=== PATIENT | female | born 1960 | race Caucasian/White ===

== ENCOUNTER 2020-03-18 12:44 | Outpatient (CLI) | payer BC, SELFPAY ==
--- NOTE | ~2020-03-18 | XR_ITS ---
XR lumbar spine 2-3V 03/18/2020 13:25 Indication: Low back pain Procedure: 3 views lumbar spine Comparison: No prior studies for comparison. Findings: Vertebral body heights are maintained. Normal lumbar lordosis. There are are mild facet deg enerative changes of the mid and lower lumbar spine. There is disc narrowing at L5-S1. Pedicles intac t. Sacral foramen are symmetric. There are calcifications in the pelvis, possibly from calcified uter ine fibroids. Impression: 1: Mild lumbar spondylosis. Reviewed, dictated and finalized at location A. Impression: 1: Mild lumbar spondylosis.
--- NOTE | ~2020-03-18 | XR_ITS ---
EXAMINATION: XR hip BI 2V w AP pelvis EXAM DATE: 03/18/2020 13:25 INDICATION: Dorsalgia. TECHNIQUE: Each hip imaged independently (separate right and also left hip) 'frog leg' and frontal p rojections for interpretation. Frontal projection pelvis. There is no prior study for comparison. FINDINGS: No radiographic evidence of hip avascular necrosis. There is mild bilateral hip primary o steoarthritis. There are sizable calcified fibroids. There are no acute fractures or dislocations brayan ntified. There is no subcutaneous gas. There are no radiopaque foreign bodies. IMPRESSION: 1. Mild symmetric bilateral hip osteoarthritis. 2. Calcified fibroids. Reviewed, dictated and finalized at location A.
[2020-03-18 13:18] LABS: Hematocrit 28.9 % (37.0-47.0); Hemoglobin 9.8 g/dL (12.0-15.0); Mean Corpuscular HGB Conc 33.9 g/dl (32-36); Mean Corpuscular Hemoglobin 31.2 pg (26-34); Mean Platelet Volume 11.3 fl (7.4-10.4); Platelet Count Result 26 k/mm3 (150-375); Red Blood Count 3.14 M/mm3 (4.2-5.4); Red Cell Distribution Width 14.4 % (11.5-14.5); White Blood Count 49.3 K/mm3 (4.5-10.0)
[2020-03-18 13:24] LABS: Add Urine Microscopic? YES; Appearance Urine Cloudy (Clear); Bacteria Urine Trace /hpf; Bilirubin Urine Negative (Negative); Blood Urine 2+ (Negative); Color Urine Yellow (Yellow); Glucose Urine UA Negative (Negative); Ketones Urine Negative (Negative); Leukocyte Esterase Ur Negative LEU/UL (Negative); Mucus Urine Rare /lpf; Nitrate Urine Negative (Negative); Protein Urine Negative (Negative); Specific Grav Ur 1.012 (1.001-1.035); Squamous Epithelial Cell Urine Many /hpf (Few); Urobilinogen Urine Negative mg/dL (<2.0)
[2020-03-18 13:33] LABS: Alanine Aminotransferase 39 U/L (4-35); Albumin Level 3.8 g/dL (3.5-5.1); Alkaline Phosphatase 346 U/L (38-126); Aspartate Amino Transferase 63 U/L (14-36); Bilirubin,Total 0.4 mg/dL (0.2-1.3); Blood Urea Nitrogen 34 mg/dL (7-17); Calcium 9.2 mg/dL (8.4-10.2); Carbon Dioxide 29 mmol/L (22-30); Chloride 88 mmol/L (98-107); Estimated Glomerular Filt Rate 42; Glucose 108 mg/dL (65-105); Potassium 4.2 mmol/L (3.4-5.0); Sodium 128 mmol/L (137-145)
[2020-03-18 13:37] LABS: Lymphocytes Absolute Manual 9.36 K/mm3 (1.1-4.5); Monocytes Absolute Manual 29.58 K/mm3 (0.1-0.90); Monocytes Percent Manual 60 % (3-9); Neutrophils Percent Manual 21 % (46-73); Total Cells Counted 100
[2020-03-18 13:38] LABS: Atypical Lymphocytes Present; Platelet Estimate Decreased (Adequate)
== END 2020-03-18 12:45 | disposition home or self-care (01) ==
PROVIDERS: PCP Internal Medicine; Visit Provider Clinical Nurse Specialist
DX: R53.1 Weakness (principal); D25.9 Leiomyoma of uterus, unspecified; M16.0 Bilateral primary osteoarthritis of hip
CPT/HCPCS: 36415; 72100; 73521; 80053; 81001; 85025; 87086; 87088